=== PATIENT | female | born 1970 | race Caucasian/White ===

== ENCOUNTER → 2019-07-29 16:21 | Outpatient (CLI) | payer MEDICARE, MEDICAID, SELFPAY ==
[2019-07-29 17:12] LABS: Hematocrit 46.2 % (36-46); Hemoglobin 15.2 g/dL (12.0-16.0); Mean Corpuscular Hemoglobin 31.4 PG (26-34); Mean Corpuscular Volume 95.2 fL (80-100); Platelet Count 227 X10^3/uL (150-400); Red Blood Cell Count 4.85 X10^6/uL (4.0-5.2); White Blood Cell Count 7.9 X10^3/uL (4.5-11.0)
== END ==
PROVIDERS: Family Provider Anesthesiology; PCP Nurse Practitioner; Visit Provider Orthopaedic Surgery
DX: Z01.818 Encounter for other preprocedural examination (principal)
CPT/HCPCS: 36415; 85027

== ENCOUNTER 2019-08-19 10:08 | Inpatient (IN) | payer MEDICARE, MEDICAID, SELFPAY ==
[2019-08-13 12:54] VITALS: BMI 37.0
[2019-08-19] VITALS (18 sets, daily range): BP systolic 89–135; BP diastolic 47–85; PULSE 75–90; RESP 7–22; TEMP 36–36.7; O2SAT 91–100; BMI 36.6
--- NOTE | 2019-08-19 | DI.RAD.S_ITS ---
PROCEDURE: XR LUMBAR SPINE 2-3V INDICATIONS: L4-5 FUSION TECHNIQUE: 2 views of the lumbar spine were acquired. COMPARISON: MRI lumbar spine 04/21/2019 and lumbar spine radiographs 03/22/2019. FINDINGS: Pedicle screws at L4 and L5 with intervertebral body spacer. IMPRESSION: L4-L5 pedicle screws are in the expected position. Dictated by: Yadiel Lewis M.D. on 08/19/2019 at 18:13 Approved by: Yadiel Lewis M.D. on 08/19/2019 at 18:14
[2019-08-19] MEDS: LACTATED RINGERS 1,000 ML 42 ML IV ×3 (11:16→17:10)
[2019-08-19] MEDS: NICOTINE 21 MG PATCH TOP (13:50)
--- NOTE | 2019-08-19 13:55 | SUR.PREOP ---
Pt wanting a nicotine patch or medicine for her nerves, pt waiting longer than expected, pt frequently updated. Nicotine patch placed to l arm, adhesive area next to skin treated with skin-prep.
--- NOTE | 2019-08-19 14:20 | PM.PREOP ---
Pre-operative Note Interval Note History & Physical reviewed/Exam performed by Physician: Yes Changes to H&P: No
--- NOTE | 2019-08-19 15:06 | P.OP_ITS ---
Operative Date/Time/Diagnoses Date of procedure: 08/19/19 Time of procedure: 17:51 Pre-op diagnosis: Lumbar disc herniation with radiculopathy Post-op diagnosis: same Procedure & Clinicians Procedure: L4-5 anterior fusion with cage L4-5 posterior instrumented fusion with screws L4-5 laminectomy Use of microscope Placement of epidural catheter Iliac crest bone graft aspirate Same procedure as scheduled: Yes Indications: [age] year old female with intractable pain from a disc herniation. They had failed conservative management and requested operative intervention. Risks and benefits of surgery were discussed and appropriate consents were obtained. Surgeon: Luiz Russell Public Service Representative: Carmen Rojo Anesthesia Type: General Operative Notes Findings: None Closure Type: primary Specimen(s): none sent Prosthetic devices, grafts, tissues, transplants, or devices: NuVasive MAS Reline screws and XLIF cage Applied: catheter Estimated Blood Loss (mL): 20 Blood products transfused: none Procedure in detail: Patient was brought to the operating room and intubated on the table. Time-out was performed. They were then rolled over to the lateral decubitus position with the [id number]. The table was bent and they were taped down in the correct position. X-rays were taken to confirm a true AP and lateral. Preoperative antibiotics were given. The left flank was prepped and draped in standard sterile fashion. Using fluoroscopy, a 3 cm incision was made above the iliac crest. We bluntly dissected down with Metzenbaum scissors and split the 3 abdominal muscle layers. We dissected out the retroperitoneal space and using finger guidance, brought our 1st dilator down to the psoas muscle. Using neuromonitoring and fluoroscopy, we placed it through the psoas onto the L4-5 disc space in an anterior position and gradually pulled the dilator posteriorly along the disc space. We placed our guidewire and measured our depth for the retractor. We then dilated with the next 2 dilators and then placed our retractor over the dilators. Position was confirmed with fluoroscopy and the retractor was locked down to the bar. We opened up the retractor and checked with neuro monitoring. We then placed the nj and again checked with neuro monitoring. The retractor was opened further and the ALL retractor was placed. An annulotomy was performed. We then performed a complete diskectomy with ring curette, pituitary, box osteotome. A Daniel was advanced across the disc space under fluoroscopy to release the lateral annulus on the opposite side. We then used sequentially larger trials and confirmed under fluoroscopy. An XLIF cage was packed with Osteocel bone graft and impacted into the L4-5 disc space with fluoroscopy for the anterior fusion at this level. The wound was irrigated. The retractor was closed down. The nj was removed. We carefully removed the retractor with direct visualization to make sure there was no neurovascular or abdominal injury. Final x-rays were taken. The muscle fascia was closed, superficial tissue was closed. The skin was closed. Sterile dressing was placed. The patient was then rolled over on the well-padded prone position on the Elmo table. Using fluoroscopy for localization, a 5 mm incision was made to the well-marked left of the midline. Bovie used to split the lumbodorsal fascia. We then percutaneously placed Jamshidi needles down the left pedicles of L4 and L5 under fluoroscopic guidance with neuro monitoring. These were switched over guidewires, tapped and the MAS screw shanks placed. We opened up the retractor blades and cleared out the gutter. The L4 and L5 transverse processes were decorticated. We then cleared out medially. We then brought in the microscope. A laminectomy was performed at L4-5 with a bur and Kerrison rongeurs. We removed the facet to get to the subarticular space where the disc herniation was and freed up the nerve root. There was still a chunk of disc herniation pushing up against it. A scalpel used to perform an annulotomy. We used pituitary for diskectomy. We released further free tissue with a ball probe. I tried to stay as superficial as possible so as not to connect the anterior surgery to the posterior surgical site. In the in the nerve root was free and there was no further pressure from the disc herniation. The screw heads were placed and a nael was measured and placed and then locked down with the set screws. The wound was copiously irrigated. A small stab incision was made over the PSIS and a Jamshidi needle was placed into the iliac crest and several mL of bone marrow was aspirated. This was mixed with our locally harvested bone graft as well as the remaining Osteocell and placed in the posterolateral gutter for fusion at L4-5. An epidural catheter was primed with 4mL of 0.5% bupivacaine, 100 mcg fentanyl, 4 mg Duramorph, 1 mg Stadol. The dura was depressed under the cephalad lamina with a ball probe and the epidural catheter was gently advanced 6 cm cephalad. The fascia was then closed. The epidural was then injected without resistance. The catheter was pulled and we closed more over the fascia. We then went to the right side. A 4 cm incision was made with fluoroscopy. Bovie used to split the fascia. We then percutaneously placed Jamshidi needles down the right pedicles of L4 and L5 under fluoroscopic guidance with monitoring. These were changed out over guidewires to tapping and then placing our screws. A nael was placed and locked down. Final x-rays were taken. The wounds were irrigated. The fascia was closed. Vancomycin powder was placed in the wounds. The superficial and skin were closed. Sterile dressing was placed. The patient was then rolled over, extubated, brought to the recovery room with no complications. Complications: none Post-operative Condition: stable Disposition: PACU Plan for aftercare: Inpatient. Up with therapy.
[2019-08-19] MEDS: CEFAZOLIN 2 GM/100 ML FROZ.PIGGY IV ×2 (15:10→23:38)
--- NOTE | 2019-08-19 15:50 | SUR.OPER ---
Right lateral on padded OR table. Head on pillow, gel axillary roll, pillow to support left arm. Legs flexed, pillows between legs, gel pad under down leg and ankle. Multiple passes of 3 inch cloth tape across shoulder, hip, upper and lower legs to secure patient on OR table.
--- NOTE | 2019-08-19 15:51 | SUR.OPER ---
Prone on spine table, head in foam head support, padded chest and pelvic supports, gel pad at knees, lower legs supported by pillows; nipples, genitalia and toes free of pressure, arms secured on foam padded arm boards at <90 degrees abduction. Tape over blanket at thigh secured to table.
[2019-08-19] MEDS: THROMBIN (RECOMBINANT) 5,000 UNIT VIAL 5000 UNIT TOP (15:56)
[2019-08-19] MEDS: BUPIVACAINE 0.5% (PF) 4 ML, MORPHINE-PF 4 MG, BUTORPHANOL 1 MG, fentaNYL 100 MCG INJ (15:57)
[2019-08-19] MEDS: SODIUM CHLORIDE 0.9% 1,000 ML, GENTAMICIN 80 MG IRR (15:57)
[2019-08-19] MEDS: VANCOMYCIN 1,000 MG VIAL 1000 MG TOP (15:57)
[2019-08-19] MEDS: HYDROMORPHONE 2 MG INJ 0.5 MG IV (18:40)
--- NOTE | 2019-08-19 19:23 | SUR.PHASEI ---
LATE ENTRY: pT AWOKE, MEDICATED X 1 FOR PAIN, REPORT CALLED TO Reinaldo, PT TRANSPORTED UP TO ROOM AND LEFT WITH ROXY IN STABLE CONDITION.
[2019-08-19] MEDS: LACTATED RINGERS 1,000 ML 125 ML IV (19:35)
[2019-08-19] MEDS: SENNOSIDES 8.6 MG TABLET 17.2 MG PO (21:48)
[2019-08-19] MEDS: DOCUSATE 100 MG CAPSULE PO (21:48)
[2019-08-19] MEDS: GABAPENTIN 300 MG CAPSULE PO (21:48)
[2019-08-19] MEDS: ACETAMINOPHEN 325 MG TABLET 975 MG PO (21:49)
[2019-08-19] MEDS: BACLOFEN 10 MG TABLET PO (21:49)
[2019-08-19] MEDS: CELECOXIB 200 MG CAPSULE PO (21:49)
[2019-08-19] MEDS: DOXEPIN 25 MG CAPSULE 50 MG PO (21:56)
--- NOTE | 2019-08-19 22:26 | PC.NURSE ---
Shift Note: [id number] Pt arrived at 1930. Awake, denies discomfort. Lungs clear/shallow, SpO2 98% RA IV LR infusing via pump as per MD orders. Satisfactory post op course. Call light w/in reach, bed alarm on for pt safety. Continue w/plan of care.
[2019-08-19] MEDS: ONDANSETRON 4 MG/2 ML INJ IV (23:46)
[2019-08-19] MEDS: OXYCODONE IR 5 MG TABLET 10 MG PO (23:46)
[2019-08-20] MEDS: MAG HYDROX/ALUM/SIMETH 30 ML UDC PO ×2 (02:01→08:18)
[2019-08-20] MEDS: METOCLOPRAMIDE 10 MG/2 ML INJ IV (02:32)
[2019-08-20 04:00] VITALS: BP 107/73; PULSE 78; RESP 16; TEMP 36.4; O2SAT 98
[2019-08-20] MEDS: LACTATED RINGERS 1,000 ML 125 ML IV (04:44)
[2019-08-20] MEDS: ONDANSETRON 4 MG/2 ML INJ IV (05:52)
[2019-08-20] MEDS: OXYCODONE IR 5 MG TABLET 10 MG PO ×3 (05:52→14:28)
[2019-08-20] MEDS: CEFAZOLIN 2 GM/100 ML FROZ.PIGGY IV (05:52)
[2019-08-20 06:30] LABS: Hemoglobin 14.2 g/dL (12.0-16.0)
[2019-08-20 08:00] VITALS: BP 110/61; PULSE 76; RESP 16; TEMP 36.4; O2SAT 100
--- NOTE | 2019-08-20 08:02 | PM.PNPO.1 ---
Subjective Subjective Date Patient Seen: 08/20/19 Time Patient Seen: 08:02 Interval history: She is doing very well. Pain is a mild ache. No more leg pain. She was nauseated but is feeling better. Exam Vital Signs (past 8 hours): - 08/20/19 04:00 Temperature 97.5 F L Pulse Rate 78 Respiratory Rate 16 Blood Pressure 107/73 Pulse Oximetry 98 Oxygen Delivery Method Room Air Oxygen Flow Rate 0 Const Orientation: alert and oriented x3 Back/Spine/Pelvis Other: CDI. 5/5 motor both lower extremities. Objective Labs Result Diagrams: 08/20/19 06:00 Labs: Laboratory Results - last 24 hr 08/20/19 06:00 Hgb 14.2 Hct 43.0 Assessment & Plan Post-op Postoperative Procedures: Procedures Operation Date: 08/19/19 12:15 Actual Procedures Side Surgeon p L45 laminectomy & anterior/posterior instrumented fusion w/ bone graft Luiz Russell MD she is doing great. We are going to mobilize her today with physical therapy. If she is doing well could possibly discharge home this afternoon. Quality VTE Deep Vein Thrombosis/Pulmonary Embolism Present on Admission: No
[2019-08-20] MEDS: CELECOXIB 200 MG CAPSULE PO (08:11)
[2019-08-20] MEDS: DOCUSATE 100 MG CAPSULE PO (08:11)
[2019-08-20] MEDS: BACLOFEN 10 MG TABLET PO ×2 (08:11→14:28)
[2019-08-20] MEDS: NICOTINE 21 MG PATCH TOP (08:11)
[2019-08-20] MEDS: GABAPENTIN 300 MG CAPSULE PO ×2 (08:12→14:28)
--- NOTE | 2019-08-20 09:25 | PT.IIE ---
Current Diagnoses Benign lipomatous neoplasm of other sites (08/19/19) Intervertebral disc disorders with radiculopathy, lumbar region (08/19/19) Postlaminectomy syndrome, not elsewhere classified (08/19/19) Surgery Performed Operation Date: 08/19/19 12:15 Actual Procedures p L45 laminectomy & anterior/posterior instrumented fusion w/ bone graft - Luiz Russell MD Surgical History (Last Updated 08/13/19 @ 13:24 by Larissa Guerrero RN) H/O: hysterectomy (Acute) Hx of cholecystectomy (Acute) Hx of detached retina repair (Acute) Hx of hernia repair (Acute) Hx of tubal ligation (Acute) S/P foot surgery, left (Acute) S/P LASIK surgery of both eyes (Acute) Medical History (Last Updated 08/13/19 @ 13:30 by Larissa Guerrero RN) ADHD (Acute) Arthritis (Acute) Asthma (Acute) Bipolar disorder, in partial remission, most recent episode mixed (Acute) Borderline personality disorder (Acute) Claustrophobia (Acute) Complex posttraumatic stress disorder (Acute) COPD (chronic obstructive pulmonary disease) (Acute) Current every day smoker (Acute) Emphysema lung (Acute) Fibromyalgia (Acute) GERD (gastroesophageal reflux disease) (Acute) Hiatal hernia (Acute) IBS (irritable bowel syndrome) (Acute) Insomnia (Acute) Irritability and anger (Acute) Learning disability (Acute) Lipoma (Acute) OCD (obsessive compulsive disorder) (Acute) Pseudotumor cerebri syndrome (Acute) Radiculopathy (Acute) RLS (restless legs syndrome) (Acute) Sciatica (Acute) Sensitive skin (Acute) Sleep apnea (Acute) 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 Mobility and Gait Independent with no devices. Activities of Daily Living and IADL's Completely independent for ADL 's, IADl's, medication, and finanaces. Social History Household Members spouse Living Arrangements Mobile home Number of Stairs To Enter/Railing? 5 steps bilateral rails. Home Environment Tub/Shower Home Equipment Hand Held Shower M1 PT/OT-IP Prior Functional Status Start: 08/20/19 12:19 Freq: NEEDED Status: Active Protocol: Document 08/20/19 09:25 AB (Rec: 08/20/19 12:28 AB [id number]) Medical Review Prior Functional Status Communication able to make needs known Mobility and Gait pt stated that she is independent with all mobilities and ambulation without AD Social History Household Members spouse Living Arrangements Mobile home Number of Floors (Floors) One Floor Number of Stairs To Enter/Railing? 5 steps bilateral rails Home Environment High Toilet,Tub/Shower Home Equipment Front Wheel Walker,Hand Held Shower Employment Status Retired M2 PT-IP Current Condition Start: 08/20/19 12:19 Freq: NEEDED Status: Active Protocol: Document 08/20/19 09:25 AB (Rec: 08/20/19 12:28 AB [id number]) Physical Therapy Current Condition Current Condition Evaluation Date 08/20/19 Treatment Diagnosis s/p L4-5 anterior fusion with case/post. fusion; difficulty in walking Onset Date 08/19/19 Precautions Lumbar Precautions Log Roll,No Twisting,Limit Bending,Lifting Restriction of 10 lbs,Gait Belt above Incisional Area M3 PT-IP Subjective Start: 08/20/19 12:19 Freq: NEEDED Status: Active Protocol: Document 08/20/19 09:25 AB (Rec: 08/20/19 12:28 AB [id number]) Subjective Physical Therapy Visit Type Type Initial Evaluation Visit Start Time 09:25 Visit Stop Time 09:59 Total Visit Minutes 34 Number of SPECIAL SERVICES AGENT Visits 0 Physical Therapy Visit Comments Patient Comments pt agreeable to do PT Patient Goals to go home Therapy Pain Assessment Pain When Pain Assessed At Rest Pain Present Pain Present Pain Reported Location Back Intensity 7 Scale Used Numeric (1 - 10) Pain Management Techniques Re-positioning,Timing of Activity with Medications M4 PT-IP Mobility and Gait Start: 08/20/19 12:19 Freq: NEEDED Status: Active Protocol: Document 08/20/19 09:25 AB (Rec: 08/20/19 12:28 AB [id number]) PT-Bed Mobility Assessment Rolling Level of Assist Standby Assistance Supine to Sit Supine to Sit Standby Assistance Sit to Supine Sit to Supine Standby Assistance Scooting Scooting to Edge of Bed Standby Assistance PT-Transfer Assessment Sit to and From Stand Sit to and from Stand Standby Assistance Equipment Transfer Assistive Device Gait Belt,Front Wheeled Walker Orthotic/Prosthetic Devices or Brace: No Transfers Transfer Destination Chair Transfer Technique Stand Step Pivot Transfer Ability Level of Assist Standby Assistance,1 Person Assistance,Use of Upper Extremities Comments Mobility Comments Bed mobility training: educated on log roll supine<> sit. pt completed x 2 sets and completed with SBA. Gait Assessment Gait Gait Assistance Required: Standby Assistance Distance (Feet) 250 Able to Maintain Weight Bearing Status Yes During Gait Assistive Devices Assistive Device Gait Belt,Front Wheeled Walker Orthotic/Prosthetic Devices or Brace: No Gait Deviations General Gait Pattern Antalgic,Decreased Stride Length,Decreased Feet Clearance Factors Limiting Gait Function Factors Limiting Gait Function Decreased Activity Tolerance, Decreased Sensation,Decreased Strength,Limited Range of Motion,Pain,Poor Balance,Poor Safety Awareness Stair Climbing Assessment Evaluation Level of Assist On Stairs Contact Guard Assistance,1 Person Assistance Devices Stair Climbing Assistive Devices Left Railing,Right Railing Technique/Endurance Stair Climbing Direction Ascend and Descend Stair Climbing Technique Step to Step Number of Steps Climbed 3 Query Text: Stair Climbing Set # Repetitions (reps) 2 PT-Balance Assessment Sitting Balance and Reactions Static Sitting Balance Ability Normal Dynamic Sitting Balance Ability Normal Standing Balance and Reactions Static Standing Balance Ability Fair Dynamic Standing Balance Ability Fair Device Used FWW M5 PT-IP Objective Assessments Start: 08/20/19 12:19 Freq: NEEDED Status: Active Protocol: Document 08/20/19 09:25 AB (Rec: 08/20/19 12:28 AB [id number]) Orientation Orientation/Cognition Level of Alertness Alert Orientation Name,Place,Situation Gross Range of Motion Lower Extremity ROM Assessment Within Functional Limits Strength Lower Extremity Strength Assessment Within Functional Limits M6 PT-IP Treatment Start: 08/20/19 12:19 Freq: NEEDED Status: Active Protocol: Document 08/20/19 09:25 AB (Rec: 08/20/19 12:28 AB [id number]) Physical Therapy Treatment Education Education Provided Precautions,Weight Bearing Status,Post-Op Packet,Safety M7 PT-IP Assessment and Plan Start: 08/20/19 12:19 Freq: NEEDED Status: Active Protocol: Document 08/20/19 09:25 AB (Rec: 08/20/19 12:28 AB [id number]) PT Summary Assessment and Plan Potential Rehabilitation Potential Good Status of Condition at Evaluation Stable Summary Impairments Pain,ROM,Strength,Balance, Coordination,Sensation,Bed Mobility,Transfers,Gait, Activity Tolerance Assessment Summary pt requiring SBA to CGA with mobility. pt will have her spouse assist her at home. pt may go home when medically stable Goals Bed Mobility Goal Independent Transfer Goal Independent,Front Wheeled Walker Gait Goal Independent,Front Wheel Walker Gait Distance 300 Other Goals up/down 5 steps B rails SBA Days to Meet Goals 3 Frequency of Treatment Frequency Of Treatment Twice a Day Treatment Plan Physical Therapy Treatment Plan Bed Mobility Training,Transfer Training,Gait Training, Therapeutic Exercise,Balance Retraining,Post Op Education, Discharge Planning,Hot or Cold Pack,Neuromuscular Re-ed, Coordination Retraining,Manual Therapy Other Recommendations and Next Treatment abmulation Focus Recommendations To Nursing Amount of Assist Needed 1 Person Assist Discharge Recommendations PT Discharge Recommendations Home with Assistance
--- NOTE | 2019-08-20 09:34 | OT.IP.EVAL ---
Current Diagnoses Benign lipomatous neoplasm of other sites (08/19/19) Intervertebral disc disorders with radiculopathy, lumbar region (08/19/19) Postlaminectomy syndrome, not elsewhere classified (08/19/19) Surgery Performed Operation Date: 08/19/19 12:15 Actual Procedures p L45 laminectomy & anterior/posterior instrumented fusion w/ bone graft - Luiz Russell MD Past Medical History (Last Updated 08/13/19 @ 13:30 by Larissa Guerrero RN) ADHD (Acute) Arthritis (Acute) Asthma (Acute) Bipolar disorder, in partial remission, most recent episode mixed (Acute) Borderline personality disorder (Acute) Claustrophobia (Acute) Complex posttraumatic stress disorder (Acute) COPD (chronic obstructive pulmonary disease) (Acute) Current every day smoker (Acute) Emphysema lung (Acute) Fibromyalgia (Acute) GERD (gastroesophageal reflux disease) (Acute) Hiatal hernia (Acute) IBS (irritable bowel syndrome) (Acute) Insomnia (Acute) Irritability and anger (Acute) Learning disability (Acute) Lipoma (Acute) OCD (obsessive compulsive disorder) (Acute) Pseudotumor cerebri syndrome (Acute) Radiculopathy (Acute) RLS (restless legs syndrome) (Acute) Sciatica (Acute) Sensitive skin (Acute) Sleep apnea (Acute) 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) Vertigo (Acute) Surgical History (Last Updated 08/13/19 @ 13:24 by Larissa Guerrero RN) H/O: hysterectomy (Acute) Hx of cholecystectomy (Acute) Hx of detached retina repair (Acute) Hx of hernia repair (Acute) Hx of tubal ligation (Acute) S/P foot surgery, left (Acute) S/P LASIK surgery of both eyes (Acute) Occupational Therapy Inpatient Evaluation/Re-Eval M1 PT/OT-IP Prior Functional Status Start: 08/20/19 10:47 Freq: NEEDED Status: Active Protocol: Document 08/20/19 10:47 [facility] (Rec: 08/20/19 11:07 [facility] [id number]) Medical Review Prior Functional Status Medical History Reviewed Yes Communication Independent. Mobility and Gait Independent with no devices. Activities of Daily Living and IADL's Completely independent for ADL 's, IADl's, medication, and finances. Social History Household Members spouse Living Arrangements Mobile home Number of Stairs To Enter/Railing? 5 steps bilateral rails. Home Environment Tub/Shower Home Equipment Hand Held Shower M2 OT-IP Current Condition Start: 08/20/19 10:47 Freq: Status: Active Protocol: Document 08/20/19 10:47 [facility] (Rec: 08/20/19 11:07 [facility] [id number]) Occupational Therapy Current Condition Current Condition Evaluation Date 08/20/19 Treatment Diagnosis S/p L4-5 lami and ant/post. instr. fusion with bone graft Diagnosis Onset Date 08/19/19 Post Operative Precautions Lumbar Precautions Log Roll,No Twisting,Limit Bending,Lifting Restriction of 10 lbs,Gait Belt above Incisional Area Weight Bearing Status Weight Bearing Status Weight Bear as Tolerated M3 OT- IP Subjective and Pain Start: 08/20/19 10:47 Freq: Status: Active Protocol: Document 08/20/19 10:47 [facility] (Rec: 08/20/19 11:07 [facility] [id number]) OT- Subjective Occupational Therapy Visit Type Type Initial Evaluation Visit Start Time 09:34 Visit Stop Time 10:45 Total Visit Minutes 71 Occupational Therapy Visit Comments Patient Comments Pt wanting to shower prior to going home. Patient/Caregiver Goals To go home today. OT Pain Assessment Pain When Pain Assessed At Rest Pain Present Pain Present Pain Reported Location Back Intensity 7 Scale Used Numeric (1 - 10) M4 OT- IP ADL's Start: 08/20/19 10:47 Freq: Status: Active Protocol: Document 08/20/19 10:47 [facility] (Rec: 08/20/19 11:07 [facility] [id number]) OT ADL-Grooming General Evaluation Grooming Ability Independent Areas Needing Assistance Retrieving/Set-up of Grooming Items Comments OT Grooming Comments Independent while sitting. OT ADL-Dressing General Eval Upper Body Dressing Ability Independent Lower Body Dressing Ability Moderate Assistance Areas Needing Assistance Socks,Shoes Comments OT Dressing Comments Pt needing assist for socks and shoes as tired from showering. Pt's able to assist at home. Educated for LB dressing equipment, however pt has long arms and able to comfortably cross her legs over for LB dressing needs. OT ADL-Toileting General Evaluation Toileting Ability Standby Assistance Comments OT Toileting Comments VC to not twist too much while trying to wipe, easier for pt to stand and reach back. OT ADL-Bathing Bathing Type Bathing Type Shower General Evaluation Bathing Ability Minimal Assistance Areas Needing Assistance Retrieving/Setting Up Items, Wash/Dry Back Devices Bathing Equipment Hand Held Shower Sprayer, Shower Chair with Arms Comments OT Bathing Comments Pt's to get a shower chair. Pt needing assist to wash /dry her back. Educated can use a long towel to reach in between her legs increase ease to wash pericare area and also have to assist. Spoke to pt regarding the difference between tub bench and shower chair. Pt states feels will be able to handle the shower chair with 's assist to step into the tub. M5 OT- IP IADL's Start: 08/20/19 10:47 Freq: Status: Active Protocol: Document 08/20/19 10:47 [facility] (Rec: 08/20/19 11:07 [facility] [id number]) OT-Instrumental Activities of Daily Living Home Safety Awareness Home Safety Comments Pt's will be able to assist for all needs at home. M6 OT- IP Functional Cognition Start: 08/20/19 10:47 Freq: Status: Active Protocol: Document 08/20/19 10:47 [facility] (Rec: 08/20/19 11:07 [facility] [id number]) Cognitive Factors Limiting Selfcare Function Cognitive Ability Level of Alertness Alert Patient Orientation Name,Age,Birthday,Month,Date, Year,Day of Week,Place, Situation Attention Span Ability Capable of Focused Attention, Capable of Sustained Attention Ability to Follow Commands Able to Follow One Step Commands Memory Description No Deficits Noted Safety Awareness Decreased Ability to Apply Precautions,Underestimates Need for Assistance Cognitive Comments Cognitive Assessment Comments Pt needing cues to slow down and incorporate back precautions as has a tendency to move too quickly and twisting. Pt aware of decreased safety awareness and states will try to be more aware to slow down and think things through. OT- Vision and Hearing OT- Hearing Assessment OT- Hearing Assessment WFL OT- Vision Assessment Visual Acuity WFL M7 OT- IP Mobility and Balance Start: 08/20/19 10:47 Freq: Status: Active Protocol: Document 08/20/19 10:47 [facility] (Rec: 08/20/19 11:07 [facility] [id number]) OT- Bed Mobility Assessment Rolling Level of Assistance Standby Assistance Supine to Sit Supine to Sit Assist Standby Assistance Sit to Supine Sit to Supine Assist Standby Assistance OT-Transfer Assessment Sit to and From Stand Sit to and from Stand Standby Assistance Transfers Transfer Ability Standby Assistance,Contact Guard Assistance Technique Transfer Destination Bed,Chair,Shower Stall,Toilet Transfer Technique Stand Step Pivot Devices Transfer Assistive Devices Gait Belt,Front Wheeled Walker Comments Mobility Comments SBA, mainly for supervision to slow down and take her time. CGA with FWW while stepping into the shower with FWW. OT- Balance Assessment Sitting Balance and Reactions Static Sitting Balance Ability Normal Dynamic Sitting Balance Ability Normal Standing Balance and Reactions Static Standing Balance Ability Good Dynamic Standing Balance Ability Fair M8 OT- IP Objective Assessments Start: 08/20/19 10:47 Freq: Status: Active Protocol: Document 08/20/19 10:47 [facility] (Rec: 08/20/19 11:07 [facility] [id number]) OT Gross Range of Motion Upper Extremity Range of Motion Assessment Within Functional Limits OT Strength Upper Extremity Strength Assessment Within Functional Limits M9 OT- IP Assessment and Plan Start: 08/20/19 10:47 Freq: Status: Active Protocol: Document 08/20/19 10:47 [facility] (Rec: 08/20/19 11:07 [facility] [id number]) OT Summary Assessment and Plan Potential Rehabilitation Potential Good Analytic Complexity at Evaluation Low Summary OT Impairments Pain,Functional Mobility, Dressing,Toileting,Bathing Progress Towards Goals Progressing Toward Goals Assessment Summary Pt low complexity and main barriers are needing to slow down and be more conscious of incorporating back precautions with all ADl and IADl needs. Pt's to be home to assist pt for all needs. Goals Patient/Caregiver Education Goal Demonstrate Energy Conservation and Pacing, Caregiver Independent Assisting Patient Days to Meet Goals 1 Frequency of Treatment Frequency Of Treatment Once a Day Treatment Plan OT Treatment Plan Patient/Family Education, Discharge Planning Discharge Recommendations OT Discharge Recommendations Home with Assistance Home Equipment Needs shower chair
--- NOTE | 2019-08-20 11:10 | CM.DANOTE ---
DCP assessment: EMR reviewed: Patient is a 49 yr old female who was admitted for spinal fusion surgery preformed by Dr Russell. PCP is Dr. Clay. CM met with patient and her spouse Alfredo at the bedside and CM/RN explained role. Patient currently live in a mobile home with her who will be home to support recovery. Patient is I at base line with all ADL's. DME: at home FWW and shower bench. Patient met with PT today for an evaluation and was determine to be ok to go home with family. Patient doesn't have access to personal transportation and need transport set up for D/C. CM called medicaid transport and patient is not eligible for Medicaid transport services. CM talked with patient about taking a bus but patient would not be able to walk from bus stop home this idea is not possible. CM Contacted [employer] for patient but since the transport request would be for today and [employer] needs 24 hr notice that is not an option either. CM discussed patient taking a taxi? patient does not have the [employer] means to pay for a cab to [place]. CM discussed doing a taxi voucher with communications department head Leonela. Leonela approved Taxi voucher and CM filled out voucher and placed copy in patients chart and gave a copy to the patient to give to [employer] at time of flower picker. CM informed patients RN and Marivel will be looking for DC orders to arrange flower picker time for Taxi Insurance: Medicare 2nd: Medicaid. Plan: D/C home with family. tansport by [employer] today at D/C. CM will watch closely for D/C orders to set up Taxi transport. Kari Nazario RN Discharge Planning/Care Management CM Discharge Assessment Start: 08/20/19 11:01 Freq: Status: Active Protocol: Document 08/20/19 11:06 [facility] (Rec: 08/20/19 11:09 [id number]) Discharge Planning Assessment Assigned Communications Supervisor Kari Nazario RN DPOA/Assigned Designee Name Alfredo George () Contact Information [phone] Advance Directives? No History Provided By Patient Has Patient been admitted in last 30 No days? Prior Living Arrangements Mobile home Household Members spouse Type of transporation used prior to Public Transportation admit Independent with ADL's Yes Is patient alert and oriented? Yes Caregiver for Another No DME Already Rented / Owned Bath Bench,FWW / Walker Discharge Plan Home Transportation Arrangement Patient needs help with transport home at D/c patient can use [employer] if D/C tomorrow 08/21/2019 but will need a taxi voucher with [employer] if D/C today. Referrals Initiated None needed Whiteboard Updated in Patient Room with Yes name and ext. # of Communications Supervisor Review Status In Process Next Review Type Continued Stay Review Pre-Anesthesia Assessment Start: 08/13/19 12:54 Freq: Status: Complete Protocol: Document 08/13/19 12:54 [facility] (Rec: 08/13/19 13:35 [facility] [id number]) Pre-Anesthesia Assessment PAC Comment Pt has JAY, awaiting CPAP follow-up on 09/19/19 Preferred Name Marc Patient Information Reviewed Via Phone Assessment Assessment Completed With Patient Diagnostic Results CBC Comment Lab @ [facility] 07/29/19 Primary Care Provider Parris Clay Seen Specialist in Last 12 Months Yes Specialist Seen Orthopedist,Other Comment Psychiatry Primary Language Iraqi Corrugator Supervisor Required No Height 165.1 cm Weight 101.151 kg Body Mass Index (BMI) 37.0 Hearing Ability Normal Visual Assist Contacts Dentition Type Teeth, Natural Present Other Aids No Comment Learning disability Hx Anesthesia Reactions It takes more anesthesia for me Hx Family Anesthesia Reaction No Hx Malignant Hyperthermia No Hx Blood Transfusions No Comment Can be confused with waking up generally every day Anesthesia Review Requested No alcohol intake former Alcohol Intake Frequency Other: Recovered alcoholic x 4 years Smoking Status Current every day smoker Tobacco type cigarettes Smoking packs per day 2 Substance Use Type marijuana Comment Advised not to smoke marjuana 24 hours prior Pain Present Pain Reported Musculoskeletal Symptoms Abnormal Gait,Back Pain, Difficulty Walking,Muscle Cramps,Muscle Spasms,Muscle Weakness,Numbness,Radiating Pain into Limb History of Falling (Recent or History of Yes ) Patient is completely paralyzed or No completely immobile Mental Status Oriented to own ability Is patient on oxygen? No Does patient have JOHNSTON/SOB No: Denies any issues Hx Sleep Apnea Yes: Awaiting CPAP follow up 09/19/19 Currently Taking a Beta Luan No Can You Climb a Flight of Stairs Without Yes SOB Hx Chest Pain No Hx SOB No Hx Syncope or Dizziness No Anti-Coagulant Therapy No Has a Security Assessor No Cardiac Testing No Hx Pacemaker/ICD No Pacemaker Rep Required? 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 States in the last 30 days? Marital Status Lives With spouse Prior Living Arrangements Mobile home Number of Floors (Floors) One Floor Support System Spouse Does the Patient Have Assistance After Yes Surgery Patient Discharge Plan Description Return Home Comment Pt advised 2-3 day length of stay per surgeon Feels Safe in Current Environment Yes Been Physically Hurt or Threatened By a No Person in Current Environment Do you have thoughts of harming yourself None or others? Are you currently considering suicide? No Do you have a plan to hurt yourself or No Plan others? Do You Have Any Spiritual Beliefs That No May Affect Your HC Choices? Do You Have Any Cultural Practices That No May Affect Your HC Choices? Who Can We Speak to About Patient's Care Family, friends Identifying Code for Release of Patient Declines to issue Information Health Care Proxy/Next of Kin Alfredo () Health Care Proxy Emergency Contact Name Alfredo () Emergency Contact Advance Directives? No Power of Jewelry Sorter No PAC Instructions Durable medical equipment, Medications to take/avoid, Nasal antibiotic,No ETOH/ petroleum product on skin DOS, NPO,Pre-surgical wash,Sturdy shoes/comfortable clothes,Do not bring valuables and remove jewelry
[2019-08-20] MEDS: hydrOXYzine pamoate 25 MG CAPSULE PO (12:40)
--- NOTE | 2019-08-20 15:46 | PC.NURSE ---
Pending discharge: Feels ready to d/c home. has written scripts. Has seen PT/OT and received their instructions. Reddy out and has voided. Diet tolerated w/out problems. Po pain meds effective. Hopes to d/c home later today.
--- NOTE | 2019-08-20 16:52 | PC.NURSE ---
Discharge Note- Patient discharged home. Reviewed discharge instructions and education with patient and spouse. Paperwork signed, Rx's given. IV line removed and bandage applied. Patient already dressed and packed up to go. rechecked room for personal belongings. Patient given a taxi voucher to get home, [employer] called. Patient taken by wheelchair with all personal belongings to ER entrance to [facility].
== END 2019-08-20 16:30 | disposition home or self-care (01) | DRG 455 ==
PROVIDERS: Admitting Provider Orthopaedic Surgery; PCP Nurse Practitioner; Visit Provider Orthopaedic Surgery
PROC: 0SG00A0 Fusion of Lumbar Vertebral Joint with Interbody Fusion Device, Anterior Approach, Anterior Column, Open Approach (ICD-10-PCS; CPT 22558; principal; 2019-08-19 12:15)
DX: M51.16 Intervertebral disc disorders with radiculopathy, lumbar region (principal); D17.79 Benign lipomatous neoplasm of other sites; M96.1 Postlaminectomy syndrome, not elsewhere classified; M79.7 Fibromyalgia; F32.9 Major depressive disorder, single episode, unspecified; J44.9 Chronic obstructive pulmonary disease, unspecified; J45.909 Unspecified asthma, uncomplicated; F17.210 Nicotine dependence, cigarettes, uncomplicated; F41.9 Anxiety disorder, unspecified; F43.10 Post-traumatic stress disorder, unspecified; E66.9 Obesity, unspecified; Z68.36 Body mass index [BMI] 36.0-36.9, adult; G47.33 Obstructive sleep apnea (adult) (pediatric)
CPT/HCPCS: 36415; 72100; 76000; 85014; 85018; 94762; 97161; 97165; 97530; 97535; C1776; J0330; J0595; J0690; J1100; J1170; J2250; J2274; J2405; J2704; J2765; J3010

== ENCOUNTER → 2021-01-11 09:24 | Outpatient (CLI) | payer MEDICARE, OTHER, SELFPAY ==
[2019-08-19 19:25] VITALS: BMI 36.6
--- NOTE | 2021-01-11 09:29 | DI.MRI.S_ITS ---
PROCEDURE: MR WRIST LT WO CON INDICATIONS: Pain in left wrist TECHNIQUE: Noncontrast coronal proton density fast spin echo and T2 fast spin echo with fat saturation; coronal 3-D gradient echo, axial T1 spin echo and T2 fast spin echo with fat saturation, sagittal T1 spin echo through the wrist. COMPARISON: None. FINDINGS: Image quality: Excellent. Bones and cartilage: The carpal bones are normally aligned. Dtoa-jq-ofabnwsk osteoarthritic changes involving radiocarpal joint, scaphoid trapezial joint and 1st CMC joint are seen with joint space narrowing, thinning of articulating cartilage and subchondral sclerosis. Minimal amount of edema involving tip of radial styloid is seen without discrete fracture line suggestive of bony contusion. No other area of abnormal marrow signal is noted. No suspicious intraosseous lesion. No evidence of a vascular necrosis. Carpal ligaments: Slight edema within the region of scapholunate ligament is seen without widening of scapholunate interval suggestive of low-grade scapholunate ligament sprain. The lunotriquetral ligaments appears intact. In the absence of intra-articular contrast, the extrinsic carpal ligaments are not well identified. On sagittal images, the pisohamate ligament appears intact. Triangular fibrocartilage complex: The triangular fibrocartilage appears intact. The adjacent meniscal homolog appears normal in the absence of intra-articular contrast. The extensor carpi ulnaris tendon is normal in location and morphology. Tendons and soft tissues: There is mildly thickened extensor pollicis brevis tendon and abductor pollicis longus tendon at the level of radial styloid suggestive of low-grade tendinosis/partial-thickness tear. The carpal tunnel structures appear normal, including the median nerve. The ulnar nerve appears normal within Guyon's canal. Rest of the extensor tendon compartments demonstrate normal morphology, without pathologic tendon sheath fluid. No soft tissue ganglion cysts. IMPRESSION: 1. Suggestion of mild bony contusion involving the radial styloid. No fracture or dislocation. Osteoarthritic changes noted along radial aspect of left wrist. 2. Suggestion of mild tendinosis/low-grade intrasubstance partial-thickness tear involving 1st extensor compartment at the level of radial styloid. Rest of the wrist tendons are intact. 3. Suggestion of low-grade sprain/intrasubstance partial-thickness tear involving scapholunate ligament. No widening of scapholunate interval. Rest of the wrist ligaments are intact. 4. Triangular fibrocartilage complex is intact. Dictated by: Samson Mai M.D. on 01/11/2021 at 15:32 Approved by: Samson Mai M.D. on 01/11/2021 at 15:36
== END ==
PROVIDERS: Family Provider Anesthesiology; PCP Family Medicine; Referring Provider Orthopaedic Surgery; Visit Provider Orthopaedic Surgery
DX: M25.532 Pain in left wrist (principal)
CPT/HCPCS: 73221

== ENCOUNTER 2022-04-30 19:36 | Emergency (ER) | payer MEDICARE, OTHER, SELFPAY ==
[2019-08-19 19:25] VITALS: BMI 36.6
[2022-04-30 19:56] VITALS: BP 125/79; PULSE 70; RESP 18; TEMP 36.8; O2SAT 98; BMI 38.7
--- NOTE | 2022-04-30 20:00 | DI.RAD.S_ITS ---
PROCEDURE: XR TOE LT MIN 2V INDICATIONS: great toe redness, pain TECHNIQUE: Single view of the foot and 2 additional views of the great toe acquired. COMPARISON: None. FINDINGS: Bones: No fractures or dislocations. No discrete bony erosions. Postsurgical changes are demonstrated consistent with prior fusion at the bases of the 1st and 2nd metatarsals and the 1st and 2nd tarsometatarsal joints. There is mild degeneration at the 1st metatarsophalangeal joint. There is also mild degeneration of the interphalangeal joints. No suspicious bony lesions. Soft tissues: No suspicious soft tissue densities. IMPRESSION: 1. No acute fracture or dislocation. No discrete bony erosions. Dictated by: Justin Reyez M.D. on 04/30/2022 at 20:47 Approved by: Justin Reyez M.D. on 04/30/2022 at 20:48
--- NOTE | 2022-04-30 22:14 | ED.EXTPRO ---
HPI - Extremity Problem General Chief complaint: Extremity Problem,Nontraumatic Stated complaint: Left big toe injury Time Seen by Provider: 04/30/22 22:14 Source: patient Mode of arrival: Wheelchair History of Present Illness HPI Narrative: 52-year-old woman with history of fatty liver, iced the arthritis prior hysterectomy, urgent stress incontinence presents with severe first metatarsal on the left foot now for 24 hours. She describes it as slightly warm and exquisitely tender to the point that she does not even want a sheet touching it. She describes no specific trauma, no fevers and no other foot swelling. She has never had a diagnosis of gout before however her partner has and she did try a dose of colchicine prior to arrival with minimal help. She denies additional joint pain or involvement, no fevers, no skin changes no particularly dry eyes dry mouth difficulty with swallowing no chest pain, palpitations abdominal pain, vomiting, diarrhea. Related Data Home Medications Medication Instructions Recorded Confirmed baclofen 10 mg tablet 10 mg PO TID 07/16/19 08/19/19 chlorzoxazone 500 mg tablet 500 mg PO TID Pain 07/16/19 08/19/19 doxepin 25 mg capsule 50 mg PO BEDTIME IBS 07/16/19 08/19/19 gabapentin 300 mg capsule 300 mg PO TID 07/16/19 08/19/19 acetaminophen 500 mg tablet 1,000 mg PO TID PRN Pain 08/13/19 08/19/19 (Tylenol Extra Strength) acyclovir 400 mg tablet 400 mg PO 5XD PRN Cold sore 08/13/19 08/13/19 outbreak albuterol sulfate 90 mcg/actuation 2 puff inhalation Q6H PRN 08/13/19 08/13/19 aerosol inhaler (Ventolin HFA) Shortness Of Breath Previous Rx's Medication Instructions Recorded docusate sodium 100 mg capsule 100 mg PO BID PRN constipation #20 08/20/19 (DOK) caps hydroxyzine pamoate 25 mg capsule 25 mg PO Q4HR PRN spasms #20 caps 08/20/19 oxycodone 5 mg tablet 5 mg PO Q3HR PRN pain (scale score 08/20/19 7-10) #30 tabs indomethacin 50 mg capsule 50 mg PO TID #30 caps 04/30/22 oxycodone-acetaminophen 5 mg-325 1 tab PO Q6H PRN pain #14 tabs 04/30/22 mg tablet Allergies Allergy/AdvReac Type Severity Reaction Status Date / Time adhesive tape Allergy Severe Seeping Verified 04/30/22 19:56 blisters bee venom protein (honey bee) Allergy Severe Anaphylaxis Verified 04/30/22 19:56 NSAIDS (Non-Steroidal AdvReac Severe Gastrointestinal Verified 04/30/22 19:56 Anti-Inflamma Upset derma reza Allergy Severe Seeping Uncoded 04/30/22 19:56 blisters Review of Systems Review of Systems Narrative: General: Alert appropriate in no acute distress Respiratory: Able to speak in full sentences, no obvious respiratory distress Skin: No obvious rashes, warm and dry Neurologic: Grossly intact no obvious asymmetries or abnormalities Psych: appropriate insight and affect, cooperative Extremities: Left 1st metatarsal joint slightly red, swollen tender without other signs of infection, no lymphangitis spread, no skin breakdown, no inguinal adenopathy. She has no other areas of active synovitis in upper or lower extremities Patient History Medical History (Updated 04/30/22 @ 23:52 by Jaylene Velazquez MD) ADHD Arthritis Asthma Bipolar disorder, in partial remission, most recent episode mixed Borderline personality disorder Claustrophobia Complex posttraumatic stress disorder COPD (chronic obstructive pulmonary disease) Current every day smoker Emphysema lung Fibromyalgia GERD (gastroesophageal reflux disease) Hiatal hernia IBS (irritable bowel syndrome) Insomnia Irritability and anger Learning disability [place] OCD (obsessive compulsive disorder) Pseudotumor cerebri syndrome Radiculopathy RLS (restless legs syndrome) Sciatica Sensitive skin Sleep apnea Ulnar nerve entrapment at elbow Vertigo Surgical History (Updated 08/13/19 @ 13:24 by Larissa Guerrero RN) H/O: hysterectomy Hx of cholecystectomy Hx of detached retina repair Hx of hernia repair Hx of tubal ligation S/P foot surgery, left S/P LASIK surgery of both eyes Social History household members: spouse Smoking Status: Former smoker alcohol intake: former Smoking Status: Former smoker Substance Use Type: marijuana Exam Initial Vital Signs Initial Vital Signs: Vital Signs Temperature 98.2 F 04/30/22 19:56 Pulse Rate 70 04/30/22 19:56 Respiratory Rate 18 04/30/22 19:56 Blood Pressure 125/79 04/30/22 19:56 Pulse Oximetry 98 04/30/22 19:56 Oxygen Delivery Method 04/30/22 19:56 Course Orders Ordered: ED Orders 04/30/22 20:00 XR toe LT min 2V Stat 04/30/22 22:30 Complete Blood Count AUTO DIFF Stat Comprehensive Metabolic Panel Stat Uric Acid Stat Discontinued Medications Prednisone (Prednisone 20 Mg Tablet) 40 mg PO NOW ONE Stop: 04/30/22 22:20 Last Admin: 04/30/22 22:38 Dose: 40 mg Documented By: SMILEY Vital Signs Vital signs: Vital Signs - 8 hr 04/30/22 19:56 Temperature 98.2 F Pulse Rate 70 Respiratory Rate 18 Blood Pressure 125/79 Pulse Oximetry 98 Oxygen Delivery Method Room Air MDM - Extremity (Nontraumatic) Lab Data Result diagrams: 04/30/22 22:30 04/30/22 22:30 Labs: Lab Results 04/30/22 04/30/22 Range/Units 22:30 22:30 WBC 7.0 (4.5-11.0) X10^3/uL RBC 4.46 (4.0-5.2) X10^6/uL Hgb 14.1 (12.0-16.0) g/dL Hct 41.2 (36-46) % MCV 92.5 (80-100) fL MCH 31.5 (26-34) PG MCHC 34.1 (30-36) % RDW 13.0 (11.6-14.8) % Plt Count 212 (150-400) X10^3/uL Neut % (Auto) 46.7 L (50-75) % Lymph % (Auto) 40.7 H (25-40) % [place] % (Auto) 9.0 (3-14) % Eos % (Auto) 2.4 (2-4) % Baso % (Auto) 1.2 (0-2) % Neut # (Auto) 3300 (7332-4292) /uL Lymph # (Auto) 2900 (7469-0189) /uL [place] # (Auto) 600 (0-900) /uL Eos # (Auto) 200 (0-450) /uL Baso # (Auto) 100 (0-100) /uL Sodium 142 (137-145) mmol/L Potassium 3.4 (3.4-5.1) mmol/L Chloride 102 (98-107) mmol/L Carbon Dioxide 32 (22-32) mmol/L BUN 21 H (7-17) mg/dL Creatinine 1.21 H (0.52-1.04) mg/dL Estimated GFR 55 L (>60) mL/min BUN/Creatinine Ratio 17.4 (6-22) Glucose 98 (70-100) mg/dL Uric Acid 9.4 H (2.5-6.2) mg/dL Calcium 9.0 (8.4-10.2) mg/dL Total Bilirubin 0.5 (0.2-1.3) mg/dL AST 26 (14-36) IU/L ALT 20 (<35) IU/L Alkaline Phosphatase 81 (38-126) U/L Total Protein 7.2 (6.3-8.2) g/dL Albumin 4.1 (3.5-5.0) g/dL Globulin 3.1 (1.7-4.1) g/dL Albumin/Globulin Ratio 1.3 (1.0-2.8) Imaging Data XR toe: Radiologist's Impression: FINDINGS:? ? Bones:? No fractures or dislocations.? No discrete bony erosions.? Postsurgical changes are demonstrated consistent with prior fusion at the bases of the 1st and 2nd metatarsals and the 1st and 2nd tarsometatarsal joints.? There is mild degeneration at the 1st metatarsophalangeal joint.? There is also mild degeneration of the interphalangeal joints.? No suspicious bony lesions.? ? Soft tissues:? No suspicious soft tissue densities.? ? IMPRESSION:? ? 1. No acute fracture or dislocation.? No discrete bony erosions. ? ? Dictated by: Justin Reyez M.D. on 04/30/2022 at 20:47 ? ? [facility] Narrative Medical decision making narrative: 52-year-old woman with 36 hours of severe pain to 1st metatarsal joint left foot. Hurts to even minimally touch the skin she is having difficulty walking. She notes that she has made some very positive dietary changes and has been losing weight in anticipation of weight loss surgery coming up in the near future. She did try to colchicine prior to arrival which had little effect. She was given 40 mg of prednisone in the emergency department with little effect. Will discharge her home with indomethacin and a small amount of Percocet to help with the severe pain until the inflammation begins to subside. Encouraged her to continue in her healthy diet choices and review gout recommendations as well as follow-up with her primary care physician. At this point I do not suspect septic arthritis, infected bursa, there is no evidence of trauma. Discharge Plan Departure Patient Disposition: Home Clinical Impression: Gout Instructions: Gout Activity Restrictions/Additional Instructions: Thank you for coming in today Your uric acid levels are significantly elevated today. I do believe that this painful foot is in fact a gout attack. I would encourage you to make sure that you are drinking plenty of fluids. Please continue with healthy diet choices. I would also suggest doing a bit of research on gout and recommended foods to avoid. In the meantime, going to have you take indomethacin as a pain pill an anti-inflammatory and to this you can add Percocet if needed for severe pain in the next 1-2 days. Prescriptions have been electronically transmitted to [facility] in [place] You do need follow-up with your primary care physician. I wish you luck in the rest of your weight loss plans and healthy diet changes. Prescriptions: New oxycodone-acetaminophen 5-325 mg tablet 1 tab PO Q6H PRN (Reason: pain) Qty: 14 0RF indomethacin 50 mg capsule 50 mg PO TID Qty: 30 0RF Rx Instructions: administer with food or milk No Action doxepin 25 mg capsule 50 mg PO BEDTIME baclofen 10 mg tablet 10 mg PO TID chlorzoxazone 500 mg tablet 500 mg PO TID gabapentin 300 mg capsule 300 mg PO TID acyclovir 400 mg Tablet 400 mg PO 5XD PRN (Reason: Cold sore outbreak) acetaminophen [Tylenol Extra Strength] 500 mg Tablet 1,000 mg PO TID PRN (Reason: Pain) albuterol sulfate [Ventolin HFA] 90 mcg/actuation Hfa Aerosol Inhaler 2 puff INHALATION Q6H PRN (Reason: Shortness Of Breath) docusate sodium [DOK] 100 mg Capsule 100 mg PO BID PRN (Reason: constipation) Qty: 20 0RF hydroxyzine pamoate 25 mg Capsule 25 mg PO Q4HR PRN (Reason: spasms) Qty: 20 0RF oxycodone 5 mg Tablet 5 mg PO Q3HR PRN (Reason: pain (scale score 7-10)) Qty: 30 0RF Referrals: Vernell Fair DO [Primary Care Provider] -
[2022-04-30] MEDS: predniSONE 20 MG TABLET 40 MG PO (22:38)
[2022-04-30 22:50] LABS: Alanine Aminotransferase 20 IU/L (<35); Albumin 4.1 g/dL (3.5-5.0); Albumin Globulin Ratio 1.3 (1.0-2.8); Alkaline Phosphatase 81 U/L (38-126); Aspartate Aminotransferase 26 IU/L (14-36); BUN Creatinine Ratio 17.4 (6-22); Bilirubin Total 0.5 mg/dL (0.2-1.3); Blood Urea Nitrogen 21 mg/dL (7-17); Carbon Dioxide 32 mmol/L (22-32); Chloride 102 mmol/L (98-107); Estimated Glomerular Filt Rate 55 mL/min (>60); Globulin 3.1 g/dL (1.7-4.1); Glucose 98 mg/dL (70-100); HEMOLYSIS < 15 (0-50); Potassium 3.4 mmol/L (3.4-5.1); Sodium 142 mmol/L (137-145); Total Protein 7.2 g/dL (6.3-8.2); Uric Acid 9.4 mg/dL (2.5-6.2)
[2022-04-30 22:59] LABS: Add Manual Diff / Slide Review NO; Basophils Absolute Auto 100 /uL (0-100); Basophils Percent Auto 1.2 % (0-2); Eosinophils Absolute Auto 200 /uL (0-450); Eosinophils Percent Auto 2.4 % (2-4); Hematocrit 41.2 % (36-46); Hemoglobin 14.1 g/dL (12.0-16.0); Lymphocytes Absolute Auto 2900 /uL (1100-4500); Lymphocytes Percent Auto 40.7 % (25-40); Mean Corpuscular HGB Conc 34.1 % (30-36); Mean Corpuscular Hemoglobin 31.5 PG (26-34); Mean Corpuscular Volume 92.5 fL (80-100); Monocytes Absolute Auto 600 /uL (0-900); Neutrophils Absolute Auto 3300 /uL (1500-7000); Neutrophils Percent Auto 46.7 % (50-75); Platelet Count 212 X10^3/uL (150-400); Red Blood Cell Count 4.46 X10^6/uL (4.0-5.2)
[2022-05-01] MEDS: OXYCODONE/APAP 5/325 PREPACK 1 BOTTLE MISC (00:03)
== END 2022-05-01 00:12 | disposition home or self-care (01) ==
PROVIDERS: Emergency Provider Emergency Medicine; Family Provider Anesthesiology; PCP Family Medicine
DX: M10.9 Gout, unspecified (principal)
CPT/HCPCS: 36415; 73660; 80053; 84550; 85025; 99283; 99284